=== PATIENT | female | born 1975 | race Caucasian/White ===

== ENCOUNTER 2016-12-18 00:09 | Emergency (ER) | payer OTHER ==
[~2016-12-18] VITALS: Ht 167.6 cm; Wt 67.9 kg
[~2016-12-18 00:09] MED LIST: AMBIEN10 MG PO; AMBIEN5 MG PO; BACTRIM,SEPT1 TABLET PO; BUSPAR10 MG PO; BUSPAR7.5 MG PO; CELEXA10 M1 PO; CELEXA40 MG PO; CEPHALEXIN500 MG PO; CLINDAMYCIN HC300 MG PO; FLEXERIL5 MG PO; GABAPENTIN300 MG PO; HUMALOG100 UNIT/1 SC; HUMALOG100 UNIT/1 SQ; HUMALOG100 UNITS/ SC; HYDROCODON-ACE1 EAC7 PO; INDOCIN25 MG PO; IRON45 MG PO; LAMISIL250 MG PO; LANTUS 10100 UNITS/ SC; LANTUS100 UNIT/2 SQ; LISINOPRIL10 MG PO; MOTRIN600 MG PO; MVI-12,MULTIVI100 ML NG/PO; NABI650T PO; NAPROSYN500 MG PO; NOVOLIN R100 UNIT/1 SC; NOVOLIN,HU100 UNITS1 IM/SC; NOVOLOG 10100 UNITS/ SC; OXYCODONE-APAP1 EAC6 PO; PERCOCET 10/1 TABLET PO; PERCOCET 5/31 TABLET PO; PRINIVIL10 MG PO; SEROQUEL XR50 MG PO; VALIUM5 MG PO; VITAMIN D-32000 UNI2 PO; VITAMIN D2000 UNIT PO; XANAX0.5 MG PO; ZESTRIL,PRINIVI10 MG PO; ZOLOFT50 MG PO
[2016-12-18] MEDS ORDERED: INDOCIN25 MG PO (01:28)
[2016-12-18] MEDS ORDERED: CLEOCIN150 MG PO (01:28)
[2016-12-18] MEDS ORDERED: CLINDAMYCIN HC300 MG PO (01:28)
[2016-12-18] MEDS ORDERED: CLARITIN10 M3 PO (01:29)
[2016-12-18] MEDS ORDERED: FLONASE16 G1 BOTH NARES (01:29)
[2016-12-18 01:53] VITALS: BP 185/86
== END 2016-12-18 01:55 | disposition home or self-care (01) ==
LOC: EME 00:09
DX: H04.303 Unspecified dacryocystitis of bilateral lacrimal passages (principal); J30.9 Allergic rhinitis, unspecified; E11.9 Type 2 diabetes mellitus without complications; F32.9 Major depressive disorder, single episode, unspecified; F41.9 Anxiety disorder, unspecified; Z79.4 Long term (current) use of insulin; F17.200 Nicotine dependence, unspecified, uncomplicated; Z88.0 Allergy status to penicillin
CPT/HCPCS: 99281; 99284

== ENCOUNTER 2017-02-17 12:09 | Inpatient (IN) | payer OTHER ==
[~2017-02-17] VITALS: Ht 167.6 cm; Wt 68.7 kg
[~2017-02-17 12:09] MED LIST changes: +CLARITIN10 M3 PO; +CLEOCIN150 MG PO; +FLONASE16 G1 BOTH NARES
[2017-02-17 13:56] LABS: POINT-OF-CARE METER ID UU14100415
[2017-02-17 14:50] LABS: BASOPHIL COUNT 0.1 K/uL (0-0.1); EOSINOPHIL (%) 0.4 % (0-5); EOSINOPHIL COUNT 0.1 K/uL (0-0.3); HEMATOCRIT 28.1 % (36.0-46.0); IMMATURE GRANULOCYTE (%) 0.6 % (0.0-0.7); IMMATURE GRANULOCYTE COUNT 0.1 K/uL; INSTRUMENT ABS NEUTROPHIL CT 11.5 K/uL; LYMPHOCYTE COUNT 1.9 K/uL (1.0-2.8); MCH 32.9 PG (29.0-34.0); MCHC 35.9 G/DL (30.0-36.0); MCV 91.5 FL (83-99); MONOCYTE (%) 5.8 % (3-12); MONOCYTE COUNT 0.8 K/uL (0-0.8); NEUTROPHIL (%) 79.5 % (45-76); NEUTROPHIL COUNT 11.5 K/uL (1.8-6.4); PLATELET COUNT 263 K/uL (156-360); RBC DIS.WIDTH-CV 11.1 % (11.8-14.6); RBC DIS.WIDTH-SD 37.2 % (39-53); RED BLOOD COUNT 3.07 M/uL (3.80-5.20); WHITE BLOOD COUNT 14.4 K/uL (4.1-10.2)
[2017-02-17 15:02] LABS: CHLORIDE 107 mEq/L (99-109); POTASSIUM 4.4 mEq/L (3.7-5.4); SODIUM 137 mEq/L (136-147)
[2017-02-17 15:06] LABS: ANION GAP 21 MEQ/L (2-14)
[2017-02-17 15:07] LABS: TOTAL BILIRUBIN 0.6 mg/dL (0.0-1.0)
[2017-02-17 15:08] LABS: ALKALINE PHOSPHATASE 159 IU/L (3-129)
[2017-02-17 15:09] LABS: GFR ESTIMATE (CALCULATED) 35 mL/min/
[2017-02-17 15:10] LABS: UREA NITROGEN (BUN) 28 mg/dL (9-23)
[2017-02-17 15:14] LABS: GLUCOSE 431 mg/dL (70-99)
[2017-02-17 15:18] LABS: POINT-OF-CARE METER ID UU13113702
[2017-02-17 16:09] LABS: ADD MIUA? YES; BILIRUBIN NEGATIVE; BLOOD SMALL; COLOR STRAW ((YELLOW)); GLUCOSE (STRIP) >=500; KETONES 80; LEUKOCYTES NEGATIVE; NITRITE NEGATIVE; PROTEIN (STRIP) 30; SPECIFIC GRAVITY 1.015 (1.000-1.030); UROBILINOGEN 0.2 MG/DL (0.2-1.0)
[2017-02-17 16:11] LABS: CARBON DIOXIDE (BICARBONATE) 9.2 MEQ/L (20-31)
[2017-02-17 16:16] LABS: BACTERIA NONE SEEN /HPF; EPITHELIAL CELLS 1+ /HPF; MUCUS NONE SEEN /LPF; RED BLOOD CELLS 0-5 /HPF (0-5); UCUL ADDED? NO; WHITE BLOOD CELLS 0-5 /HPF (0-5)
[2017-02-17 17:16] LABS: POINT-OF-CARE METER ID UU13113702
[2017-02-17 17:55] LABS: CHLORIDE 109 mEq/L (99-109); POTASSIUM 4.1 mEq/L (3.7-5.4); SODIUM 137 mEq/L (136-147)
[2017-02-17 17:57] LABS: GLUCOSE 376 mg/dL (70-99)
[2017-02-17 17:58] LABS: ANION GAP 21 MEQ/L (2-14)
[2017-02-17 18:01] LABS: GFR ESTIMATE (CALCULATED) 35 mL/min/
[2017-02-17 18:02] LABS: UREA NITROGEN (BUN) 27 mg/dL (9-23)
[2017-02-17 19:03] LABS: POINT-OF-CARE METER ID UU13113702; POINT-OF-CARE USER ID HMLKAV
[2017-02-17 19:26] LABS: INTERNAL CONTROL VALID? YES
[2017-02-17 20:51] VITALS: BP 130/68
[2017-02-17] MEDS ORDERED: GABAPENTIN400 MG PO (20:57)
[2017-02-17] MEDS ORDERED: ERGOCALCIF50000 UNIT PO (20:59)
[2017-02-17 21:00] VITALS: BP 133/66
[2017-02-17] MEDS ORDERED: OXYCODONE HCL15 MG PO (21:00)
[2017-02-17] MEDS ORDERED: VALACYCLOVIR500 MG PO (21:02)
[2017-02-17] MEDS ORDERED: CALCITRIOL0.25 MCG PO (21:07)
[2017-02-17 21:17] LABS: POINT-OF-CARE METER ID UU14314082
[2017-02-17 21:51] LABS: Estimated Average Glucose 295 mg/dL (70-123); HEMOGLOBIN A1c (GLYCOHEMOGLOB) 11.9 % HGB (Below 5.7)
[2017-02-17 22:00] VITALS: BP 119/83
[2017-02-17 22:15] LABS: POINT-OF-CARE METER ID UU14314082
[2017-02-17 22:39] LABS: METH RESISTANT S AUREUS PCR NEGATIVE (NEGATIVE)
[2017-02-17 23:00] VITALS: BP 138/74
[2017-02-17 23:11] LABS: POINT-OF-CARE METER ID UU14314082
[2017-02-17 23:13] LABS: PROBE CHECK PASS; SPECIMEN PROCESSING CONTROL PASS
[2017-02-18] VITALS (12 sets, daily range): BP systolic 92–149; BP diastolic 61–95
[2017-02-18 00:27] LABS: POINT-OF-CARE METER ID UU14314082
[2017-02-18 00:49] LABS: CHLORIDE 113 mEq/L (99-109); POTASSIUM 3.7 mEq/L (3.7-5.4); SODIUM 137 mEq/L (136-147)
[2017-02-18 00:51] LABS: GLUCOSE 218 mg/dL (70-99)
[2017-02-18 00:52] LABS: ANION GAP 10 MEQ/L (2-14)
[2017-02-18 00:55] LABS: GFR ESTIMATE (CALCULATED) 41 mL/min/
[2017-02-18 01:05] LABS: POINT-OF-CARE METER ID UU13113748
[2017-02-18 01:05] LABS: UREA NITROGEN (BUN) 21 mg/dL (9-23)
[2017-02-18 02:04] LABS: POINT-OF-CARE METER ID UU14314083
[2017-02-18 03:20] LABS: POINT-OF-CARE METER ID UU14314083
[2017-02-18 04:01] LABS: POINT-OF-CARE METER ID UU14314083
[2017-02-18 05:17] LABS: CHLORIDE 115 mEq/L (99-109); POTASSIUM 3.8 mEq/L (3.7-5.4); SODIUM 137 mEq/L (136-147)
[2017-02-18 05:19] LABS: GLUCOSE 157 mg/dL (70-99)
[2017-02-18 05:20] LABS: ANION GAP 5 MEQ/L (2-14)
[2017-02-18 05:22] LABS: GFR ESTIMATE (CALCULATED) 44 mL/min/
[2017-02-18 05:23] LABS: UREA NITROGEN (BUN) 18 mg/dL (9-23)
[2017-02-18 05:30] LABS: POINT-OF-CARE METER ID UU14314083
[2017-02-18 06:30] LABS: POINT-OF-CARE METER ID UU14314083
[2017-02-18 07:17] LABS: POINT-OF-CARE METER ID UU14314083
[2017-02-18 08:00] LABS: POINT-OF-CARE METER ID UU14314083
[2017-02-18 12:02] LABS: CHLORIDE 112 mEq/L (99-109); SODIUM 136 mEq/L (136-147)
[2017-02-18 12:03] LABS: GLUCOSE 183 mg/dL (70-99)
[2017-02-18 12:05] LABS: ANION GAP 8 MEQ/L (2-14)
[2017-02-18 12:07] LABS: GFR ESTIMATE (CALCULATED) 48 mL/min/
[2017-02-18 12:08] LABS: UREA NITROGEN (BUN) 15 mg/dL (9-23)
[2017-02-18 13:48] LABS: HEMATOCRIT 25.7 % (36.0-46.0); MCH 31.9 PG (29.0-34.0); MCHC 33.9 G/DL (30.0-36.0); MCV 94.1 FL (83-99); MEAN PLAT.VOLUME 10.7 uM^3 (9.5-12.4); PLATELET COUNT 231 K/uL (156-360); RBC DIS.WIDTH-CV 11.9 % (11.8-14.6); RBC DIS.WIDTH-SD 40.2 % (39-53); RED BLOOD COUNT 2.73 M/uL (3.80-5.20)
[2017-02-18 16:42] LABS: POINT-OF-CARE METER ID UU14162508
[2017-02-18 22:15] LABS: POINT-OF-CARE METER ID UU14162508
[2017-02-19 03:05] VITALS: BP 141/79
[2017-02-19 03:47] LABS: POINT-OF-CARE METER ID UU14314084
[2017-02-19 06:58] LABS: POINT-OF-CARE METER ID UU14314084
[2017-02-19 07:12] LABS: ANION GAP 10 MEQ/L (2-14); CHLORIDE 112 MEQ/L (99-109); GFR ESTIMATE (CALCULATED) 44 mL/min/; POTASSIUM 4.2 MEQ/L (3.7-5.4); SAMPLE HEMOLYSIS CHECK 0; SAMPLE ICTERIC CHECK 0; SAMPLE LIPEMIA CHECK 0; SODIUM 140 MEQ/L (136-147)
[2017-02-19 07:19] LABS: GLUCOSE 280 mg/dL (70-99); UREA NITROGEN (BUN) 24 mg/dL (9-23)
[2017-02-19 07:39] VITALS: BP 158/69
[2017-02-19 11:53] LABS: POINT-OF-CARE METER ID UU14208750
[2017-02-19 12:27] VITALS: BP 141/65
[2017-02-19 15:52] VITALS: BP 154/73
[2017-02-19 17:16] LABS: POINT-OF-CARE METER ID UU14314084
[2017-02-19 20:20] LABS: POINT-OF-CARE METER ID UU14100415
[2017-02-19 21:37] LABS: POINT-OF-CARE METER ID UU14208750
[2017-02-20] VITALS: BP 143/65
[2017-02-20 06:27] LABS: POINT-OF-CARE METER ID UU14208750
[2017-02-20 07:10] LABS: HEMATOCRIT 25.6 % (36.0-46.0); MCH 33.1 PG (29.0-34.0); MCHC 36.3 G/DL (30.0-36.0); MCV 91.1 FL (83-99); MEAN PLAT.VOLUME 10.8 uM^3 (9.5-12.4); PLATELET COUNT 201 K/uL (156-360); RBC DIS.WIDTH-CV 11.5 % (11.8-14.6); RBC DIS.WIDTH-SD 38.4 % (39-53); RED BLOOD COUNT 2.81 M/uL (3.80-5.20); WHITE BLOOD COUNT 6.7 K/uL (4.1-10.2)
[2017-02-20 07:25] VITALS: BP 163/76
[2017-02-20] MEDS ORDERED: ESCITALOPRAM OX10 MG PO (09:10)
[2017-02-20] MEDS ORDERED: HUMALOG100 UNIT/2 SC (09:10)
[2017-02-20] MEDS ORDERED: LEVEMIR FL100 UNIT/1 SC (09:10)
[2017-02-20] MEDS ORDERED: ZOLPIDEM TARTRAT5 MG PO (09:10)
[2017-02-20 11:27] LABS: POINT-OF-CARE METER ID UU14314084
== END 2017-02-20 13:15 | disposition home or self-care (01) | DRG 638 ==
LOC: EME 12:09 → 4WEST 19:30 → 2EAST 19:30 → EDOF 19:30 → ENRESERV 19:34 → 4WEST 20:35 → ENRESERV 02-18 13:09 → 2EAST 02-18 15:44
PROVIDERS: Emergency Medicine; Internal Medicine; Surgery
DX: E10.10 Type 1 diabetes mellitus with ketoacidosis without coma (principal); E10.22 Type 1 diabetes mellitus with diabetic chronic kidney disease; F33.0 Major depressive disorder, recurrent, mild; E10.40 Type 1 diabetes mellitus with diabetic neuropathy, unspecified; F41.1 Generalized anxiety disorder; D72.829 Elevated white blood cell count, unspecified; G89.29 Other chronic pain; F17.210 Nicotine dependence, cigarettes, uncomplicated; N18.9 Chronic kidney disease, unspecified; I12.9 Hypertensive chronic kidney disease with stage 1 through stage 4 chronic kidney disease, or unspecified chronic kidney disease; Z83.3 Family history of diabetes mellitus; Z81.8 Family history of other mental and behavioral disorders; Z91.19 Patient's noncompliance with other medical treatment and regimen; Z91.14 Patient's other noncompliance with medication regimen; Z79.4 Long term (current) use of insulin
CPT/HCPCS: 71010; 80048; 80048 91; 80053; 81003; 82010; 82803; 82948; 83036; 84100; 84703; 85025; 85027; 87641; 90832; 99281; 99285; J1650; J1815; J2270; J2405; J3480; J7030; J7050; J7120

== ENCOUNTER 2017-04-26 16:46 | Inpatient (IN) | payer OTHER ==
[~2017-04-26] VITALS: Ht 167.6 cm; Wt 68.4 kg
[~2017-04-26 16:46] MED LIST changes: +CALCITRIOL0.25 MCG PO; +ERGOCALCIF50000 UNIT PO; +ESCITALOPRAM OX10 MG PO; +GABAPENTIN400 MG PO; +HUMALOG100 UNIT/2 SC; +LEVEMIR FL100 UNIT/1 SC; +OXYCODONE HCL15 MG PO; +VALACYCLOVIR500 MG PO; +ZOLPIDEM TARTRAT5 MG PO
[2017-04-26 19:05] LABS: HEMATOCRIT 37.1 % (36.0-46.0); HEMOGLOBIN 13.5 G/DL (11.9-15.5); MCHC 36.4 G/DL (30.0-36.0); MCV 90.7 FL (83-99); PLATELET COUNT 338 K/uL (156-360); RBC DIS.WIDTH-SD 37.2 % (39-53); RED BLOOD COUNT 4.09 M/uL (3.80-5.20); WHITE BLOOD COUNT 14.5 K/uL (4.1-10.2)
[2017-04-26 19:17] LABS: ALBUMIN 4.3 g/dL (3.2-4.8)
[2017-04-26 19:18] LABS: CHLORIDE 100 mEq/L (99-109); POTASSIUM 4.5 mEq/L (3.7-5.4); SODIUM 131 mEq/L (136-147)
[2017-04-26 19:20] LABS: TOTAL PROTEIN 7.7 g/dL (6.4-8.3)
[2017-04-26 19:23] LABS: ALKALINE PHOSPHATASE 190 IU/L (3-129)
[2017-04-26 19:24] LABS: CREATININE 2.1 mg/dL (0.6-1.3); GFR ESTIMATE (CALCULATED) 28 mL/min/
[2017-04-26 19:25] LABS: AST (GOT) 17 IU/L (2-34); UREA NITROGEN (BUN) 32 mg/dL (9-23)
[2017-04-26 19:26] LABS: ALT (GPT) 14 IU/L (3-49)
[2017-04-26 19:34] LABS: APPEARANCE SL.HAZY ((CLEAR)); BILIRUBIN NEGATIVE; BLOOD SMALL; COLOR YELLOW ((YELLOW)); GLUCOSE (STRIP) >=500; KETONES 20; LEUKOCYTES NEGATIVE; NITRITE NEGATIVE; PROTEIN (STRIP) 30; SPECIFIC GRAVITY 1.022 (1.000-1.030); UROBILINOGEN 0.2 MG/DL (0.2-1.0)
[2017-04-26 19:43] LABS: BACTERIA NONE SEEN /HPF; EPITHELIAL CELLS RARE /HPF; HYALINE CASTS 0-5 /LPF; MUCUS TRACE /LPF; RED BLOOD CELLS 0-5 /HPF (0-5); UCUL ADDED? NO; WHITE BLOOD CELLS 0-5 /HPF (0-5)
[2017-04-26 19:53] LABS: GLUCOSE 553 mg/dL (70-99)
[2017-04-26] MEDS ORDERED: LEXAPRO20 MG PO ×2 (22:28)
[2017-04-27 00:11] LABS: CHLORIDE 109 mEq/L (99-109); SODIUM 133 mEq/L (136-147)
[2017-04-27 00:12] LABS: GLUCOSE 356 mg/dL (70-99); POTASSIUM 3.5 mEq/L (3.7-5.4)
[2017-04-27 00:17] LABS: UREA NITROGEN (BUN) 29 mg/dL (9-23)
[2017-04-27 00:22] LABS: CREATININE 1.6 mg/dL (0.6-1.3); GFR ESTIMATE (CALCULATED) 38 mL/min/
[2017-04-27 06:01] LABS: HEMATOCRIT 28.5 % (36.0-46.0); MCH 33.1 PG (29.0-34.0); MCHC 36.1 G/DL (30.0-36.0); MCV 91.6 FL (83-99); PLATELET COUNT 242 K/uL (156-360); RBC DIS.WIDTH-CV 11.1 % (11.8-14.6); RBC DIS.WIDTH-SD 37.2 % (39-53)
[2017-04-27 06:04] LABS: HEMOGLOBIN 10.3 G/DL (11.9-15.5); RED BLOOD COUNT 3.11 M/uL (3.80-5.20)
[2017-04-27 07:51] VITALS: BP 135/63
[2017-04-27 09:04] LABS: CARBON DIOXIDE (BICARBONATE) 15.4 MEQ/L (20-31)
[2017-04-27 09:34] LABS: CHLORIDE 102 MEQ/L (99-109); CREATININE 1.4 MG/DL (0.6-1.3); GFR ESTIMATE (CALCULATED) 44 mL/min/; POTASSIUM 4.2 MEQ/L (3.7-5.4); SODIUM 131 MEQ/L (136-147); UREA NITROGEN (BUN) 28 mg/dL (9-23)
[2017-04-27 09:35] LABS: GLUCOSE 470 mg/dL (70-99)
[2017-04-27 11:15] VITALS: BP 140/78
[2017-04-27 12:23] LABS: BASE EXCESS -7.8 mEq/L (-3 to +3); BICARBONATE 17.5 mEq/L (22-26); COMMENTS - BLOOD GASES A+C+; FI02 0.21 %; METHEMOGLOBIN 1.3 % (0-1.5); PCO2 34 mm Hg (35-45); PO2 82 mm Hg (80-100); SITE RR; pH 7.32 (7.35-7.45)
[2017-04-27 12:24] LABS: CHLORIDE 108 MEQ/L (99-109); MAGNESIUM 1.5 mg/dl (1.3-2.7); SODIUM 136 MEQ/L (136-147)
[2017-04-27 12:30] LABS: CREATININE 1.3 MG/DL (0.6-1.3); GFR ESTIMATE (CALCULATED) 48 mL/min/; GLUCOSE 266 mg/dL (70-99); PHOSPHORUS 2.6 mg/dL (2.5-4.9); UREA NITROGEN (BUN) 24 mg/dL (9-23)
[2017-04-27 14:00] VITALS: BP 151/94
[2017-04-27 16:00] VITALS: BP 136/77
[2017-04-27 16:18] LABS: CHLORIDE 110 MEQ/L (99-109); CREATININE 1.2 MG/DL (0.6-1.3); GFR ESTIMATE (CALCULATED) 53 mL/min/; GLUCOSE 279 mg/dL (70-99); POTASSIUM 3.8 MEQ/L (3.7-5.4); SODIUM 136 MEQ/L (136-147); UREA NITROGEN (BUN) 20 mg/dL (9-23)
[2017-04-27 20:30] VITALS: BP 130/73
[2017-04-28] VITALS: BP 140/70
[2017-04-28 05:00] VITALS: BP 135/89
[2017-04-28 06:00] VITALS: BP 135/89
[2017-04-28 06:43] LABS: CHLORIDE 110 MEQ/L (99-109); CREATININE 1.3 MG/DL (0.6-1.3); GFR ESTIMATE (CALCULATED) 48 mL/min/; GLUCOSE 250 mg/dL (70-99); POTASSIUM 3.6 MEQ/L (3.7-5.4); SODIUM 138 MEQ/L (136-147); UREA NITROGEN (BUN) 19 mg/dL (9-23)
[2017-04-28] MEDS ORDERED: CEFDINIR300 MG PO (09:56)
[2017-04-28 10:00] VITALS: BP 130/65
== END 2017-04-28 11:35 | disposition home or self-care (01) | DRG 638 ==
LOC: EME 16:46 → EDOF 04-27 01:23 → ENRESERV 04-27 01:28 → EDOF 04-27 03:06 → ENRESERV 04-27 06:14 → 5WEST 04-27 07:34 → ENRESERV 04-27 09:46 → 4WEST 04-27 10:48 → ENRESERV 04-27 16:53 → 4WEST 04-27 17:41 → CANRESERV 04-28 05:37 → ENRESERV 04-28 05:37 → 4WEST 04-28 11:35
PROVIDERS: Hospitalist; Obstetrics & Gynecology; Physician Assistant; Specialist
DX: E10.10 Type 1 diabetes mellitus with ketoacidosis without coma (principal); N17.9 Acute kidney failure, unspecified; E86.0 Dehydration; H66.92 Otitis media, unspecified, left ear; J06.9 Acute upper respiratory infection, unspecified; J02.9 Acute pharyngitis, unspecified; I12.9 Hypertensive chronic kidney disease with stage 1 through stage 4 chronic kidney disease, or unspecified chronic kidney disease; N18.3 Chronic kidney disease, stage 3 (moderate); E10.22 Type 1 diabetes mellitus with diabetic chronic kidney disease; D64.9 Anemia, unspecified; F32.9 Major depressive disorder, single episode, unspecified; F41.9 Anxiety disorder, unspecified; G43.909 Migraine, unspecified, not intractable, without status migrainosus; G89.29 Other chronic pain; M79.604 Pain in right leg; R19.7 Diarrhea, unspecified; F17.210 Nicotine dependence, cigarettes, uncomplicated; Z82.49 Family history of ischemic heart disease and other diseases of the circulatory system; Z83.3 Family history of diabetes mellitus
CPT/HCPCS: 36600; 74176; 80048; 80048 91; 80053; 81003; 82010; 82803; 82948; 83735; 84100; 85027; 87502; 87641; 87651 90; 99281; 99284; J1650; J1815; J2270; J2405; J7030; S0028

== ENCOUNTER 2017-08-03 00:44 | Emergency (ER) | payer OTHER ==
[~2017-08-03] VITALS: Ht 167.6 cm; Wt 63.6 kg
[~2017-08-03 00:44] MED LIST changes: +CEFDINIR300 MG PO; +LEXAPRO20 MG PO
[2017-08-03] MEDS ORDERED: FLEXERIL10 MG PO (05:16)
[2017-08-03 05:26] VITALS: BP 166/70
== END 2017-08-03 05:29 | disposition home or self-care (01) ==
LOC: EME 00:44
DX: S70.01XA Contusion of right hip, initial encounter (principal); S80.01XA Contusion of right knee, initial encounter; W18.30XA Fall on same level, unspecified, initial encounter; M25.571 Pain in right ankle and joints of right foot; G89.29 Other chronic pain; E11.9 Type 2 diabetes mellitus without complications; F31.9 Bipolar disorder, unspecified; F41.9 Anxiety disorder, unspecified; F32.9 Major depressive disorder, single episode, unspecified; F17.200 Nicotine dependence, unspecified, uncomplicated; Y93.K1 Activity, walking an animal; Z79.891 Long term (current) use of opiate analgesic; Z79.4 Long term (current) use of insulin; Z87.39 Personal history of other diseases of the musculoskeletal system and connective tissue; Z90.49 Acquired absence of other specified parts of digestive tract; Z98.890 Other specified postprocedural states; Z88.5 Allergy status to narcotic agent; Z88.0 Allergy status to penicillin; Z91.041 Radiographic dye allergy status; Z88.8 Allergy status to other drugs, medicaments and biological substances
CPT/HCPCS: 73010; 73564; 73610; 99281; 99284

== ENCOUNTER 2017-10-26 12:39 | Observation (INO) | payer OTHER ==
[~2017-10-26] VITALS: Ht 167.6 cm; Wt 63.3 kg
[~2017-10-26 12:39] MED LIST changes: +FLEXERIL10 MG PO
[2017-10-26 13:30] LABS: BASOPHIL (%) 0.8 % (0-1); BASOPHIL COUNT 0.1 K/uL (0-0.1); EOSINOPHIL (%) 0.9 % (0-5); EOSINOPHIL COUNT 0.1 K/uL (0-0.3); HEMATOCRIT 34.7 % (36.0-46.0); HEMOGLOBIN 12.6 G/DL (11.9-15.5); IMMATURE GRANULOCYTE (%) 0.6 % (0.0-0.7); LYMPHOCYTE (%) 18.4 % (15-42); MCH 33.2 PG (29.0-34.0); MCHC 36.3 G/DL (30.0-36.0); MCV 91.6 FL (83-99); MONOCYTE (%) 4.1 % (3-12); MONOCYTE COUNT 0.5 K/uL (0-0.8); NEUTROPHIL (%) 75.2 % (45-76); NEUTROPHIL COUNT 8.3 K/uL (1.8-6.4); PLATELET COUNT 262 K/uL (156-360); RBC DIS.WIDTH-CV 11.1 % (11.8-14.6); RBC DIS.WIDTH-SD 37.6 % (39-53); RED BLOOD COUNT 3.79 M/uL (3.80-5.20); WHITE BLOOD COUNT 11.1 K/uL (4.1-10.2)
[2017-10-26 13:39] LABS: CARBON DIOXIDE (BICARBONATE) 21.5 MEQ/L (20-31)
[2017-10-26 13:42] LABS: CHLORIDE 97 mEq/L (99-109); POTASSIUM 4.2 mEq/L (3.7-5.4); SODIUM 132 mEq/L (136-147)
[2017-10-26 13:45] LABS: TOTAL PROTEIN 7.3 g/dL (6.4-8.3)
[2017-10-26 13:46] LABS: TOTAL BILIRUBIN 0.8 mg/dL (0.0-1.0)
[2017-10-26 13:48] LABS: ALKALINE PHOSPHATASE 241 IU/L (3-129); CREATININE 1.8 mg/dL (0.6-1.3); GFR ESTIMATE (CALCULATED) 33 mL/min/
[2017-10-26 13:49] LABS: UREA NITROGEN (BUN) 37 mg/dL (9-23)
[2017-10-26 13:50] LABS: AST (GOT) 13 IU/L (2-34)
[2017-10-26 13:51] LABS: ALT (GPT) 14 IU/L (3-49)
[2017-10-26 13:57] LABS: QUANTITATIVE HCG < 4.0 MIU/ML
[2017-10-26 14:01] LABS: GLUCOSE 446 mg/dL (70-99)
[2017-10-26] MEDS ORDERED: QUETIAPINE FUMA50 MG PO (14:43)
[2017-10-26] MEDS ORDERED: SERTRALINE HCL50 MG PO (14:43)
[2017-10-26 14:47] LABS: APPEARANCE CLEAR ((CLEAR)); BILIRUBIN NEGATIVE; BLOOD NEGATIVE; COLOR STRAW ((YELLOW)); GLUCOSE (STRIP) >=500; KETONES 20; LEUKOCYTES NEGATIVE; NITRITE NEGATIVE; PROTEIN (STRIP) 30; SPECIFIC GRAVITY 1.018 (1.000-1.030); UROBILINOGEN 0.2 MG/DL (0.2-1.0)
[2017-10-26 16:35] LABS: CHLORIDE 108 mEq/L (99-109); GLUCOSE 159 mg/dL (70-99); POTASSIUM 3.2 mEq/L (3.7-5.4); SODIUM 139 mEq/L (136-147)
[2017-10-26 16:36] LABS: GFR ESTIMATE (CALCULATED) 48 mL/min/; PHOSPHORUS 1.5 mg/dL (2.5-4.9)
[2017-10-26 16:37] LABS: UREA NITROGEN (BUN) 29 mg/dL (9-23)
[2017-10-26 16:51] LABS: CREATININE 1.3 mg/dL (0.6-1.3)
[2017-10-26 20:39] VITALS: BP 153/76
[2017-10-26 20:46] LABS: CHLORIDE 108 mEq/L (99-109); SODIUM 140 mEq/L (136-147)
[2017-10-26 20:48] LABS: GLUCOSE 142 mg/dL (70-99)
[2017-10-26 20:51] LABS: CREATININE 1.2 mg/dL (0.6-1.3); GFR ESTIMATE (CALCULATED) 53 mL/min/
[2017-10-26 20:52] LABS: UREA NITROGEN (BUN) 24 mg/dL (9-23)
[2017-10-26 21:19] LABS: PHOSPHORUS 3.5 mg/dL (2.5-4.9); POTASSIUM 4.1 mEq/L (3.7-5.4)
[2017-10-27 00:04] VITALS: BP 138/76
[2017-10-27 01:03] LABS: CHLORIDE 105 mEq/L (99-109); POTASSIUM 4.2 mEq/L (3.7-5.4); SODIUM 137 mEq/L (136-147)
[2017-10-27 01:09] LABS: CREATININE 1.4 mg/dL (0.6-1.3); GFR ESTIMATE (CALCULATED) 44 mL/min/; UREA NITROGEN (BUN) 25 mg/dL (9-23)
[2017-10-27 01:20] LABS: GLUCOSE 385 mg/dL (70-99)
[2017-10-27 04:30] VITALS: BP 133/80
[2017-10-27 06:22] LABS: CHLORIDE 106 MEQ/L (99-109); CREATININE 1.2 MG/DL (0.6-1.3); GFR ESTIMATE (CALCULATED) 53 mL/min/; GLUCOSE 292 mg/dL (70-99); PHOSPHORUS 3.2 mg/dL (2.5-4.9); SODIUM 137 MEQ/L (136-147); UREA NITROGEN (BUN) 23 mg/dL (9-23)
[2017-10-27 08:05] VITALS: BP 149/70
[2017-10-27 08:41] LABS: CHLORIDE 109 mEq/L (99-109); SODIUM 138 mEq/L (136-147)
[2017-10-27 08:43] LABS: GLUCOSE 242 mg/dL (70-99)
[2017-10-27 08:47] LABS: CREATININE 1.2 mg/dL (0.6-1.3); GFR ESTIMATE (CALCULATED) 53 mL/min/; PHOSPHORUS 2.9 mg/dL (2.5-4.9)
[2017-10-27 08:48] LABS: UREA NITROGEN (BUN) 21 mg/dL (9-23)
[2017-10-27 11:09] LABS: HEMOGLOBIN A1c (GLYCOHEMOGLOB) 14.4 % (Below 5.7)
[2017-10-27 12:11] VITALS: BP 137/87
[2017-10-27 12:53] LABS: CHLORIDE 109 MEQ/L (99-109); GFR ESTIMATE (CALCULATED) > 59 mL/min/; PHOSPHORUS 2.7 mg/dL (2.5-4.9); POTASSIUM 3.7 MEQ/L (3.7-5.4); SODIUM 139 MEQ/L (136-147); UREA NITROGEN (BUN) 19 mg/dL (9-23)
[2017-10-27 12:56] LABS: GLUCOSE 89 mg/dL (70-99)
== END 2017-10-27 15:35 | disposition home or self-care (01) ==
LOC: EME 12:39 → 4SOUTH 16:58 → EDOF 16:58 → ENRESERV 17:04 → 4SOUTH 20:27
PROVIDERS: Emergency Medicine; Hospitalist
DX: E10.10 Type 1 diabetes mellitus with ketoacidosis without coma (principal); E86.0 Dehydration; N17.9 Acute kidney failure, unspecified; I10 Essential (primary) hypertension; G89.29 Other chronic pain; Z79.891 Long term (current) use of opiate analgesic; Z83.3 Family history of diabetes mellitus; Z82.49 Family history of ischemic heart disease and other diseases of the circulatory system; Z82.3 Family history of stroke; F17.210 Nicotine dependence, cigarettes, uncomplicated; Z88.0 Allergy status to penicillin; Z88.5 Allergy status to narcotic agent; Z91.041 Radiographic dye allergy status
CPT/HCPCS: 80048; 80048 91; 80053; 81003; 82010; 82803; 82948; 83036; 83930; 84100; 84702; 85025; 99281; 99285; G0378; J0780; J1200; J1815; J2405; J7030; J7050